=== PATIENT | male | born 1990 | race Two or more races ===

== ENCOUNTER 2017-12-23 22:26 | Emergency (ER) | payer SELFPAY ==
[~2017-12-23] VITALS: Ht 175.3 cm; Wt 97.3 kg
[2017-12-23 22:39] VITALS: BP 133/77
== END 2017-12-23 23:10 | disposition home or self-care (01) ==
LOC: ED 23:04
DX: K02.9 Dental caries, unspecified (principal); K08.89 Other specified disorders of teeth and supporting structures
CPT/HCPCS: 99283

== ENCOUNTER 2020-10-13 13:16 | Emergency (ER) | payer SELFPAY ==
[~2020-10-13] VITALS: Ht 180.3 cm; Wt 104.9 kg
[2020-10-13] MEDS ORDERED: ACETAMINOPHEN 500 MG TABLET ONE ×2 (13:47→14:19)
--- NOTE | 2020-10-13 13:49 | NUR ---
Note nathan in ED - 10/13/20 at 1454 by BRITNEY PT MEDICATED PER MAR FOR FEVER IN TRIAGE.
[2020-10-13] MEDS ORDERED: DEXAMETHASONE 4 MG TABLET ONE (14:18)
[2020-10-13] MEDS ORDERED: CEFTRIAXONE 1,000 MG ONE (14:19)
[2020-10-13] MEDS ORDERED: CEFTRIAXONE 1,000 MG IM ONE (14:30)
[2020-10-13] MEDS ORDERED: ACETAMINOPHEN 500 MG TABLET PO ONE (14:30)
[2020-10-13] MEDS ORDERED: DEXAMETHASONE 4 MG TABLET PO ONE (14:30)
--- NOTE | 2020-10-13 14:47 | NUR ---
PT STATES HAS HAD A SORE THROAT SINCE YESTERDAY HARD TO EAT FOOD OR SWALLOW PAIN 8/10 PT STATES HAS HAD A FEVER AND GENERAL WEAKNESS. SUSAN RAILS UP X 2 VSS, CALL REMOTE WITHIN REACH.
--- NOTE | 2020-10-13 14:51 | NUR ---
REPEAT TEMP 102.1 ORAL
--- NOTE | 2020-10-13 14:54 | NUR ---
This RN did not medicate this pt.
[2020-10-13 15:32] VITALS: BP 121/68
--- NOTE | 2020-10-13 15:34 | NUR ---
Patient given discharge instructions to not take any more Tylenol today and drink plenty of fluids to take Ibpofen instead for today only, and they have confirmed that they understand the instructions. Patient ambulatory with steady gait.
== END 2020-10-13 15:39 | disposition home or self-care (01) ==
LOC: ED 13:57
DX: J02.0 Streptococcal pharyngitis (principal)
CPT/HCPCS: 87081; 87880; 96372; 99283; J0696